=== PATIENT | female | born 1990 | race Hispanic/Latino ===

== ENCOUNTER 2017-03-05 02:25 | Emergency (ER) | payer SELFPAY ==
[2017-03-05 02:43] VITALS: TEMP 98.1; O2SAT 99
[2017-03-05] MEDS ORDERED: Lidocaine 1% Inj (20ml) INFIL STA (02:49)
[2017-03-05] MEDS ORDERED: Lidocaine 1% Inj (20ml) ONE (02:55)
[2017-03-05] MEDS ORDERED: Aluminum Hydroxide/Magnesium Hydroxide Susp (30 mL) ONE (03:02)
--- NOTE | 2017-03-05 03:17 | C.PDOC ---
History Of Present Illness 27 year old female who presents to the ER with a complaint of a laceration to her left big toe. Patient states her foot got stuck in the elevator today; denies weakness or numbness. Time Seen by Provider: 03/05/17 02:47 Chief Complaint (Nursing): Lower Extremity Problem/Injury History Per: Patient History/Exam Limitations: no limitations Onset/Duration Of Symptoms: Hrs Current Symptoms Are (Timing): Still Present Recent travel outside of the [place]: No - Ankle/Foot Description Of Injury: Laceration Past Medical History Reviewed: Historical Data, Nursing Documentation, Vital Signs Vital Signs: Last Vital Signs Temp 98.1 F 03/05/17 02:34 Pulse 94 H 03/05/17 02:34 Resp 18 03/05/17 02:34 BP 110/68 03/05/17 02:34 Pulse Ox 99 03/05/17 03:30 - Medical History PMH: No Chronic Diseases Surgical History: Tonsillectomy Family History: States: Unknown Family Hx - Social History Hx Alcohol Use: Yes Hx Substance Use: No - Immunization History Hx Tetanus Toxoid Vaccination: No Hx Influenza Vaccination: No Review Of Systems Skin: Positive for: Other (Laceration) Neurological: Negative for: Weakness, Numbness Physical Exam - Physical Exam Appears: Non-toxic Skin: Normal Color, Warm, Dry Head: Atraumatic, Normacephalic Oral Mucosa: Moist Extremity: Normal ROM, Other (Irregular 3cm laceration to dorsal left big toe that extends to the 2nd digit. No active bleeding.) Neurological/Psych: Oriented x3, Normal Speech, Normal Cognition ED Course And Treatment O2 Sat by Pulse Oximetry: 99 (Room air) Pulse Ox Interpretation: Normal Laceration - Laceration Repair foot Wound Length (In cm): 3 Description Of Wound: Irregular Wound Cleansed With: Betadine, Sterile Saline Wound Examination: Irrigated With Saline, No FB With Wound Exploration, No Tendon Injury With Wound Exploration Wound Closure: Suture Suture Technique And Material Used: Interrupted (5 polysorb 4-0) Wound Complexity: Simple Medical Decision Making Medical Decision Making: Impression: 27 year old female with left foot laceration Plan: * Tylenol * Foot x-ray * Lac repair Foot xray shows no fx Disposition Counseled Patient/Family Regarding: Diagnosis, Need For Followup - Disposition Disposition: HOME/ ROUTINE Disposition Time: 03:29 Condition: STABLE Additional Instructions: Keep area clean and dry. May wash gently with soap and water, do not use alcohol or iodine solution. Change dressing 1-2 times daily Instructions: Care For Your Absorbable Stitches (ED) - POA Present On Arrival: Falls Or Trauma - Clinical Impression Clinical Impression: Foot laceration, Contusion, foot - Scribe Statement The provider has reviewed the documentation as recorded by the Scribe Merlin Lozoya All medical record entries made by the Treasureibal[employer] were at my direction and personally dictated by me. I have reviewed the chart and agree that the record accurately reflects my personal performance of the history, physical exam, medical decision making, and the department course for this patient. I have also personally directed, reviewed, and agree with the discharge instructions and disposition.
[2017-03-05] MEDS ORDERED: Bacitracin 500 Units/gm Oint Foilpak UD ONE (03:55)
[2017-03-05 05:01] VITALS: BP 112/78; PULSE 86; RESP 20
--- NOTE | 2017-03-05 10:14 | RAD ---
PROCEDURE: Left Foot Radiographs. HISTORY: pain s.p injury COMPARISON: None. FINDINGS: BONES: No evidence of acute displaced fracture nor dislocation. The osseous structures appear intact no cortical destructive changes. JOINTS: Joint spaces preserved. SOFT TISSUES: There is a small approximately 3.7 x 1.9 cm elliptical shaped radiopaque density which appears to be located along the plantar skin surface at the level of the base of the proximal phalanx 5th toe. This could represent a skin surface foreign body. Clinical correlation with physical exam. OTHER FINDINGS: None. IMPRESSION: No evidence of acute displaced fracture nor dislocation. There is a small approximately 3.7 x 1.9 cm elliptical shaped radiopaque density which appears to be located along the plantar skin surface at the level of the base of the proximal phalanx 5th toe. This could represent a skin surface foreign body. Clinical correlation with physical exam. This report was placed in [place] review folder followup
== END 2017-03-05 04:00 | disposition home or self-care (01) ==
LOC: C.ER 02:25
DX: S91.312A Laceration without foreign body, left foot, initial encounter (principal); S90.32XA Contusion of left foot, initial encounter; W23.0XXA Caught, crushed, jammed, or pinched between moving objects, initial encounter